=== PATIENT | male | born 1950 | race Two or more races ===

== ENCOUNTER 2023-01-17 10:50 | Emergency (ER) | payer OTHER ==
[~2023-01-17] VITALS: Ht 182.9 cm; Wt 87.0 kg
[2023-01-17 11:51] LABS: Basophils # (auto) 0 10 ^3/uL (0-0.2); Basophils % (auto) 0.7 % (0.0-2.0); Eosinophils # (auto) 0.2 10 ^3/uL (0-0.8); Eosinophils % (auto) 4.6 % (0.0-7.0); Hematocrit 42.2 % (41.0-53.0); Hemoglobin 14.1 g/dL (13.5-17.5); Lymphocytes % (auto) 21.3 % (10.0-50.0); Mean Corpuscular Hemoglobin 28.1 pg (28.0-32.0); Mean Corpuscular Hgb Conc. 33.5 g/dL (32.0-36.0); Monocytes # (auto) 0.3 10 ^3/uL (0-1.3); Monocytes % (auto) 5.6 % (0.0-12.0); Neutrophils # (auto) 3.3 10 ^3/uL (1.6-8.6); Neutrophils % (auto) 67.8 % (37.0-80.0); Nucleated Red Blood Cells % 0.1 %; Red Blood Cells 5.02 10^6/uL (4.5-5.90); Red Cell Distribution Width 13.3 % (11.8-14.3); White Blood Cell 4.8 10^3/uL (4.4-10.8)
[2023-01-17 12:01] LABS: INR 1.11 (0.9-1.15); Partial Thromboplastin Time 30.4 SEC (24.5-34.5); Prothrombin Time 11.6 sec (9.3-11.8)
[2023-01-17 12:49] LABS: Albumin 4.2 g/dL (3.4-5.0); Potassium 3.4 mmol/L (3.5-5.1)
[2023-01-17 12:52] LABS: BUN/Creatinine Ratio 22.5 (10.0-20.0); Calcium 9.6 mg/dL (8.5-10.1); Magnesium 2.2 mg/dL (1.6-2.6)
[2023-01-17 12:55] LABS: Bilirubin, Total 0.4 mg/dL (0.2-1.0); Total Protein 8.2 g/dL (6.4-8.2)
[2023-01-17] MEDS ORDERED: MECL25CH85 PO (15:51)
[2023-01-17 15:52] VITALS: BP 153/75; PULSE 60; RESP 18; TEMP 98.4; O2SAT 99
[2023-01-17] MEDS ORDERED: MECLIZINE HCL 25 MG TAB PO ONE (16:00)
== END 2023-01-17 16:07 | disposition home or self-care (01) ==
LOC: ER 10:50
DX: H81.13 Benign paroxysmal vertigo, bilateral (principal); E11.9 Type 2 diabetes mellitus without complications; I25.10 Atherosclerotic heart disease of native coronary artery without angina pectoris; R94.31 Abnormal electrocardiogram [ECG] [EKG]; Z95.1 Presence of aortocoronary bypass graft
CPT/HCPCS: 36415; 70450; 71045; 80053; 82962; 83735; 83880; 84484; 85025; 85610; 85730; 93005; 99285; J8597

== ENCOUNTER 2024-02-09 10:36 | Emergency (ER) | payer OTHER ==
[~2024-02-09] VITALS: Ht 185.4 cm; Wt 80.7 kg
[~2024-02-09 10:36] MED LIST: MECL25CH85 PO
[2024-02-09 11:33] VITALS: BP 124/74; PULSE 78; RESP 17; TEMP 98.4; O2SAT 98
[2024-02-09] MEDS: cefTRIAXone SOD 1,000 MG VL IM ONE (12:10)
[2024-02-09] MEDS: TETANUS-DIPTH-ACEL PERTUSSIS 0.5ML SYR Tdap IM ONE (12:11)
[2024-02-09] MEDS ORDERED: NAPR-746 PO (12:33)
[2024-02-09] MEDS ORDERED: AUG875T PO (12:33)
== END 2024-02-09 12:38 | disposition home or self-care (01) ==
LOC: ER 10:36
DX: S61.432A Puncture wound without foreign body of left hand, initial encounter (principal); S61.431A Puncture wound without foreign body of right hand, initial encounter; S61.411A Laceration without foreign body of right hand, initial encounter; E11.9 Type 2 diabetes mellitus without complications; E78.5 Hyperlipidemia, unspecified; I10 Essential (primary) hypertension; Z79.899 Other long term (current) drug therapy; Z98.890 Other specified postprocedural states; W55.01XA Bitten by cat, initial encounter; Y93.89 Activity, other specified; Y92.89 Other specified places as the place of occurrence of the external cause; Y99.8 Other external cause status
CPT/HCPCS: 90471; 90715; 96372; 99284; J0696